=== PATIENT | male | born 1960 | race Asian ===

== ENCOUNTER 2018-12-03 17:15 | Observation (INO) | payer OTHER ==
[~2018-12-03] VITALS: Ht 154.9 cm; Wt 72.8 kg
[2018-12-03 19:37] LABS: BASO % 0.2 % (0.0-2.0); EOS % 0.1 % (0-4.0); GRAN # 6.8 (1.4-6.5); HEMOGLOBIN 10.5 g/dl (13.5-18.0); LYMPH # 1.7 (1.2-3.4); LYMPH % 18.1 % (20.0-51.0); MEAN CELL VOLUME 93 fl (80.0-100.0); MEAN CORPUSCULAR HEMOGLOBIN 31 pg (27.0-31.0); MEAN CORPUSCULAR HGB CONC 34 g/dl (33.0-37.0); MEAN PLATELET VOLUME 9.3 fl (7.4-10.4); MONO # 0.7 (0.1-0.6); MONO % 7.4 % (1.7-9.3); PLATELET COUNT 201 K/mm3 (130-400); RED BLOOD COUNT 3.35 M/mm3 (4.20-5.60); REDCELL DISTRIBUTION WIDTH-CV 13.2 % (11.5-14.5)
[2018-12-03 19:38] LABS: PROTHROMBIN TIME 11.5 SECONDS (9.7-12.8)
[2018-12-03 19:41] LABS: HEMATOCRIT 31.3 % (42.0-52.0); PARTIAL THROMBOPLASTIN TIME 28.7 SECONDS (26.0-37.0)
[2018-12-03 20:04] LABS: ALBUMIN 3.9 gm/dL (3.5-5.0); BILIRUBIN,TOTAL 1.8 mg/dL (0.0-1.0); CALCIUM 8.6 mg/dL (8.4-10.2); CREATININE, serum 0.83 mg/dL (0.66-1.25); POTASSIUM 4.2 mmol/L (3.4-5.0); TOTAL PROTEIN 7.1 gm/dL (6.4-8.2)
[2018-12-03 21:58] VITALS: BP 138/60; PULSE 96; TEMP 98.7
[2018-12-04 00:16] VITALS: BP 129/64; PULSE 98; TEMP 97.7
--- NOTE | 2018-12-04 03:03 | NUR ---
Patient arrived to medical floor from ER around 2129. Denies having pain, just reports discomfort to his nose related to bilateral packing. Reports pain feels like congestion, but declines wanting anything. BS had been 138/60. Upon recheck, it was 129/64. Given scheduled medication as ordered for hypertension. UA has not been obtained so far this shift. Patient reminded about needing sample, and voiced understanding. packing is intact, without any active bleeding noted. Denies having feelings of blood running down his throat. Resting in bed with eyes closed at this time. Call light is within reach. INT to left hand patent.
[2018-12-04 03:51] VITALS: BP 121/61; PULSE 98
[2018-12-04 05:54] VITALS: BP 128/71; PULSE 99; TEMP 98.2
--- NOTE | 2018-12-04 05:56 | NUR ---
Continues to deny having pain and discomfort. Packing in place to bilateral nares. No active bleeding noted at this time from nares. No urine sample obtained at this time. Patient reminded that we need a urine sample. Voiced understanding. Denied needing to urinate at that time. Resting in bed with eyes closed at this time. Call light is within reach.
[2018-12-04 06:25] VITALS: BP 109/59; PULSE 95
[2018-12-04 09:08] LABS: BASO % 0.1 % (0.0-2.0); GRAN # 10.2 (1.4-6.5); HEMOGLOBIN 10.1 g/dl (13.5-18.0); LYMPH # 1.2 (1.2-3.4); LYMPH % 9.7 % (20.0-51.0); MEAN CELL VOLUME 94 fl (80.0-100.0); MEAN CORPUSCULAR HEMOGLOBIN 31 pg (27.0-31.0); MEAN CORPUSCULAR HGB CONC 33 g/dl (33.0-37.0); MEAN PLATELET VOLUME 9.5 fl (7.4-10.4); MONO # 0.9 (0.1-0.6); MONO % 6.9 % (1.7-9.3); PLATELET COUNT 208 K/mm3 (130-400); RED BLOOD COUNT 3.26 M/mm3 (4.20-5.60); REDCELL DISTRIBUTION WIDTH-CV 13.3 % (11.5-14.5)
[2018-12-04 09:12] LABS: HEMATOCRIT 30.6 % (42.0-52.0)
[2018-12-04 09:14] LABS: CALCIUM 8.7 mg/dL (8.4-10.2); CREATININE, serum 0.86 mg/dL (0.66-1.25)
[2018-12-04 10:16] VITALS: BP 123/66; PULSE 101; TEMP 97.1
[2018-12-04] MEDS ORDERED: ZESTRIL 20MG TA20 MG PO (11:48)
[2018-12-04] MEDS ORDERED: AMOXICILLIN 8751 TAB PO (11:49)
--- NOTE | 2018-12-04 13:36 | NUR ---
At 1310 patient was escorted out of hospital by nursing staff. Offered wheelchair and declined, wished to ambulate. Personal items carried out by patient and family. Discharge instructions and new medications given with patient understanding. Prescriptions given to along with phone numbers to clinics so patient can establish care with a primary care provider. Was instructed to make a follow up appointment for blood pressure monitoring as instructed to take blood pressure twice a day and recommended keeping a journal of pressures. Discharged via private car.
== END 2018-12-04 13:10 | disposition home or self-care (01) ==
LOC: COL.ER 17:15 → MEDICAL 20:31
PROVIDERS: Emergency Medicine; Nurse Practitioner Family; ADMIT Hospitalist
DX: R04.0 Epistaxis (principal); I10 Essential (primary) hypertension; R94.5 Abnormal results of liver function studies; J32.9 Chronic sinusitis, unspecified; Z87.891 Personal history of nicotine dependence
CPT/HCPCS: G0378; J0360; J7030

== ENCOUNTER 2019-04-06 23:20 | Emergency (ER) | payer OTHER ==
[~2019-04-06] VITALS: Ht 175.3 cm; Wt 72.7 kg
[~2019-04-06 23:20] MED LIST: AMOXICILLIN 8751 TAB PO; ZESTRIL 20MG TA20 MG PO
[2019-04-06 23:38] VITALS: BP 119/75; PULSE 75; TEMP 97
== END 2019-04-07 00:43 | disposition home or self-care (01) ==
LOC: COL.ER 23:20
DX: R19.7 Diarrhea, unspecified (principal); R11.10 Vomiting, unspecified; R10.9 Unspecified abdominal pain; I10 Essential (primary) hypertension; E86.9 Volume depletion, unspecified; F17.210 Nicotine dependence, cigarettes, uncomplicated